=== PATIENT | female | born 1950 | race Caucasian/White ===

== ENCOUNTER 2016-07-03 12:41 | Emergency (ER) | payer MEDICARE, BC ==
[2016-07-03 13:09] VITALS: BP 120/65; PULSE 84; RESP 18; TEMP 97.1
--- NOTE | 2016-07-03 13:15 | ED ---
Upper Extremity HPI - General Stated Complaint: Right Wrist Injury Time Seen by Provider: 07/03/16 13:06 Source: patient, family, RN notes reviewed Mode of arrival: ambulatory Limitations: no limitations - History of Present Illness Initial Comments: 66-year-old female presents emergency Department chief complaint right wrist pain. Patient states that she tripped and fell her kitchen last night. Patient states that she fell onto her right wrist. She is left-hand dominant. Denies any head injury no LOC. Patient states her wrist is swollen, bruised and is very painful today. Patient has no paresthesias. She is increased pain with range of motion better at rest. Patient states that she has no lower extremity injury no back pain no neck pain. Place: home - Related Data Home Medications Medication Instructions Recorded Confirmed ALPRAZolam [Xanax] 1 mg PO DAILY PRN 01/12/14 12/30/15 Citalopram Hydrobromide 40 mg PO DAILY 01/12/14 12/30/15 [Citalopram HBr] Eszopiclone [Lunesta] 3 mg PO HS 01/12/14 12/30/15 Gabapentin [Neurontin] 800 mg PO QID 01/12/14 12/30/15 Baclofen [Lioresal] 10 mg PO BID-W/MEALS 12/30/15 12/30/15 Multivitamins, Thera [Multivitamin] 1 tab PO DAILY 12/30/15 12/30/15 amLODIPine [Norvasc] 10 mg PO DAILY 12/30/15 12/30/15 Allergies Allergy/AdvReac Type Severity Reaction Status Date / Time oxycodone HCl [From Percocet] Allergy Itching Verified 07/03/16 13:09 aspirin AdvReac Nausea & Verified 07/03/16 13:09 Vomiting codeine AdvReac Nausea & Verified 07/03/16 13:09 Vomiting Review of Systems ROS Statement: Those systems with pertinent positive or pertinent negative responses have been documented in the HPI. ROS Other: All systems not noted in ROS Statement are negative. 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 Ca General Exam Limitations: no limitations General appearance: alert, in no apparent distress Respiratory exam: Present: normal lung sounds bilaterally. Absent: respiratory distress, wheezes, rales, rhonchi, stridor Cardiovascular Exam: Present: regular rate, normal rhythm, normal heart sounds. Absent: systolic murmur, diastolic murmur, rubs, gallop, clicks Extremities exam: Present: other (Right wrist there is moderate edema, ecchymosis noted there is tenderness along the wrist and proximal hand there is no tenderness across MCPs or any other digits.) Neurological exam: Present: alert, oriented X3, CN II-XII intact Skin exam: Present: warm, dry, intact, normal color. Absent: rash Course Vital Signs 07/03/16 13:05 Temperature 97.1 F L Pulse Rate 84 Respiratory 18 Rate Blood Pressure 120/65 O2 Sat by Pulse 95 Oximetry Procedures - Orthopedic Splinting/Casting Injury #1 Side: right Upper Extremity Injury Location: wrist Upper Extremity Immobilizer: volar splint (Short arm neurovascular intact before and after procedure) Medical Decision Making - Medical Decision Making 66-year-old female presented emergency department for right wrist injury. Patient has fracture her right wrist. Patient was placed in a splint and follow -up with orthopedics return parameters were discussed. Disposition Clinical Impression: Right wrist fracture Disposition: HOME SELF-CARE Condition: Stable Instructions: Arm Fracture in Adults (ED) Additional Instructions: Please return to the Emergency Department if symptoms worsen or any other concerns. Referrals: Jose Veloz III, MD [Primary Care Provider] - 1-2 days Ion Alfred MD [STAFF PHYSICIAN] - 1-2 days Time of Disposition: 13:23
--- NOTE | 2016-07-03 13:50 | XR ---
EXAMINATION TYPE: XR wrist complete RT DATE OF EXAM: 07/03/2016 1:20 PM COMPARISON: NONE HISTORY: 66-year-old female with pain and swelling after fall last night TECHNIQUE: 4 views FINDINGS: There is an impacted and dorsally angulated transverse metaphyseal fracture of the distal radius with a mild dorsal displacement. Associated soft tissue swelling. No additional acute fracture or disloca tion seen. IMPRESSION: Mildly impacted Colles' fracture distal radius. Associated soft tissue swelling.
== END 2016-07-03 13:42 | disposition home or self-care (01) ==
LOC: EC 12:41
DX: S62.101A Fracture of unspecified carpal bone, right wrist, initial encounter for closed fracture (principal); E78.5 Hyperlipidemia, unspecified; I10 Essential (primary) hypertension; F17.200 Nicotine dependence, unspecified, uncomplicated; Z88.5 Allergy status to narcotic agent; Z88.6 Allergy status to analgesic agent; Z88.8 Allergy status to other drugs, medicaments and biological substances; Z79.899 Other long term (current) drug therapy; W01.0XXA Fall on same level from slipping, tripping and stumbling without subsequent striking against object, initial encounter; Y92.090 Kitchen in other non-institutional residence as the place of occurrence of the external cause
CPT/HCPCS: 29125; 99283

== ENCOUNTER 2016-07-29 09:32 | Emergency (ER) | payer MEDICARE, BC ==
[2016-07-29 09:40] VITALS: TEMP 97.1
[2016-07-29] MEDS ORDERED: SODIUM CHLORIDE 0.9% 1,000 ML IV ONE (10:03)
[2016-07-29] MEDS ORDERED: SODIUM CHLORIDE 0.9% 500 ML IV ONE (10:03)
[2016-07-29 10:23] LABS: Glucose,Whole Blood 108 mg/dL (75-99)
[2016-07-29 10:32] LABS: Basophils % (A) 0 %; CH 35.6; CHCM 33.2; Eosinophils # (A) 0.1 k/uL (0-0.7); Eosinophils % (A) 1 %; HCT 34.4 % (34.0-46.0); HDW 2.46; HGB 11.5 gm/dL (11.4-16.0); Luc # (Auto) 0.25; Luc % (Auto) 4; Lymphocytes # (A) 1.4 k/uL (1.0-4.8); Lymphocytes % (A) 20 %; MCHC 33.5 g/dL (31.0-37.0); MCV 107.6 fL (80.0-100.0); Macrocytosis Moderate; Mean Platelet Volume 7.6; Monocytes # (A) 0.3 k/uL (0-1.0); Monocytes % (A) 4 %; Neutrophils # (A) 5.1 k/uL (1.3-7.7); Neutrophils % (A) 71 %; RDW 14.5 % (11.5-15.5); WBC 7.2 k/uL (3.8-10.6); WBC (Perox) 7.29
[2016-07-29 10:38] LABS: INR 1.2 (<1.1); Partial Thromboplastin Time 26.8 sec (22.0-30.0); Prothrombin Time 12.1 sec (9.0-12.0)
[2016-07-29 10:41] LABS: ALT 41 U/L (9-52); AST 49 U/L (14-36); Alkaline Phosphatase 135 U/L (38-126); Anion Gap 1 mmol/L; Blood Urea Nitrogen 2 mg/dL (7-17); Calcium 8.6 mg/dL (8.4-10.2); Carbon Dioxide 24 mmol/L (22-30); Chloride 110 mmol/L (98-107); Glucose 106 mg/dL (74-99); Non-African American GFR(MDRD) >60 (>60 ml/min/1.73 sqM); Sodium 135 mmol/L (137-145); Total Bilirubin 0.7 mg/dL (0.2-1.3); Total Protein 5.7 g/dL (6.3-8.2)
[2016-07-29 10:43] LABS: Potassium 2.4 mmol/L (3.5-5.1)
[2016-07-29] MEDS ORDERED: POTASSIUM CHLORIDE ORAL LIQUID 40 MEQ/30 ML CUP PO ONE (10:47)
--- NOTE | 2016-07-29 10:52 | CT ---
EXAMINATION TYPE: CT brain wo con DATE OF EXAM: 07/29/2016 HISTORY: Altered mental status CT DLP: 945.5 mGycm. Automated Exposure Control for Dose Reduction was Utilized. TECHNIQUE: CT scan of the head is performed without contrast. COMPARISON: Prior CT brain December 30, 2015. FINDINGS: There is no acute intracranial hemorrhage or midline shift identified. There is diffuse v entricular and sulcal prominence consistent with diffuse age-related cerebral atrophy. There is low- attenuation in the periventricular white matter consistent with chronic small vessel ischemic change. The globes are intact and the visualized sinuses are clear. Patchy opacification inferior left ma stoid air cells is redemonstrated IMPRESSION: No acute intracranial hemorrhage or midline shift. There is mild to moderate diffuse ag e-related cerebral atrophy and chronic small vessel ischemic change redemonstrated. No significant ch rhys from prior study is evident.
[2016-07-29 10:53] LABS: Creatine Kinase 97 U/L (30-135)
--- NOTE | 2016-07-29 10:57 | XR ---
EXAMINATION TYPE: XR chest 2V DATE OF EXAM: 07/29/2016 COMPARISON: Chest x-ray October 02, 2015 HISTORY: Altered mental status. TECHNIQUE: Frontal and lateral views of the chest are obtained. FINDINGS: Underlying emphysematous change is felt present. There is no focal air space opacity, pleur al effusion, or pneumothorax seen. The cardiac silhouette size is within normal limits. Atherosclero tic change in thoracic aorta is redemonstrated. Surgical clips near gastroesophageal junction are aga in seen. The visualized osseous structures are intact. IMPRESSION: Chronic emphysematous change without acute pulmonary process.
[2016-07-29 11:06] LABS: Creatine Kinase MB 2.2 ng/mL (0.0-2.4); Troponin I <0.012 ng/mL (0.000-0.034)
--- NOTE | 2016-07-29 11:19 | ED ---
Altered Mental Status HPI - General Chief Complaint: Altered Mental Status Stated Complaint: dehydrated,electrolytes off Time Seen by Provider: 07/29/16 09:56 Source: patient Mode of arrival: wheelchair Limitations: no limitations - History of Present Illness Initial Comments: 66 years old female who had a few falls last night my said she fell 5-6 times in last 24 hours she was quite confused this morning conversation did not make any sense and he also stated that she has a history of for electrolyte imbalance the past and whenever that happens she gets confused. No headaches no chest pain no shortness of breath no abdominal pain no frequency urgency dysuria and she denies any injuries from the fall stated that there was a injury to her buttocks area but patient herself said no - Related Data Home Medications Medication Instructions Recorded Confirmed ALPRAZolam [Xanax] 1 mg PO DAILY PRN 01/12/14 07/29/16 Citalopram Hydrobromide 40 mg PO DAILY 01/12/14 07/29/16 [Citalopram HBr] Eszopiclone [Lunesta] 3 mg PO HS 01/12/14 07/29/16 Gabapentin [Neurontin] 800 mg PO QID 01/12/14 07/29/16 Multivitamins, Thera [Multivitamin] 1 tab PO DAILY 12/30/15 07/29/16 amLODIPine [Norvasc] 10 mg PO DAILY 12/30/15 07/29/16 Furosemide [Lasix] 20 mg PO DAILY PRN 07/29/16 07/29/16 Previous Rx's Medication Instructions Recorded Potassium Chloride 20 meq PO DAILY #10 tab.er.prt 07/29/16 Allergies Allergy/AdvReac Type Severity Reaction Status Date / Time oxycodone HCl [From Percocet] Allergy Itching Verified 07/29/16 11:07 aspirin AdvReac Nausea & Verified 07/29/16 11:07 Vomiting codeine AdvReac Nausea & Verified 07/29/16 11:07 Vomiting Review of Systems ROS Statement: Those systems with pertinent positive or pertinent negative responses have been documented in the HPI. ROS Other: All systems not noted in ROS Statement are negative. 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 Ca General Exam - General Exam Comments Initial Comments: General: The patient is awake and seems confused sometimes in the other times she is not confused Skin: Skin is warm and dry and no rashes or lesions are noted. Eye: Pupils are equal, round and reactive to light, extra-ocular movements are intact; there is normal conjunctiva bilaterally. Ears, nose, mouth and throat: Exam is normal Neck: The neck is supple, there is no tenderness . Cardiovascular: There is a regular rate and rhythm. No murmur, rub or gallop is appreciated. Respiratory: To auscultation bilateral, Consistent with the COPD Gastrointestinal: Soft, non-distended, non-tender abdomen without masses or organomegaly noted. There is no rebound or guarding present. Bowel sounds are unremarkable. Back: There is no tenderness to palpation in the midline. There is no obvious deformity. Musculoskeletal: Normal ROM, no tenderness, There is no pedal edema. There is no calf tenderness or swelling. No cords were appreciated. Neurological: CN II-XII intact, Cranial nerves III through XII are intact. There are no obvious motor or sensory deficits. Coordination appears grossly intact. Speech is normal. Psychiatric: Cooperative, appropriate mood & affect, normal judgment. Limitations: no limitations Course Vital Signs 07/29/16 07/29/16 09:37 10:14 Temperature 97.1 F L Pulse Rate 104 H 87 Respiratory 20 16 Rate Blood Pressure 86/54 157/84 O2 Sat by Pulse 100 99 Oximetry EKG is normal normal sinus rhythm ventricular rate is 92 IN interval is 128 QRS duration is 76 QT/QTc is 4:30/531 and 50 mL EKG reveals some T-wave flattening in lead 1 and some T wave in V4 inversion in leads 2 and 3 as well as aVF also noticed some mouth S2 depression in V3 V4 V5 and V6 Considering the EKG changes and now low potassium of 2.4 I recommended that patient is in the hospital for serial cardiac markers that she do not like the idea of staying in the hospital Considering her hypotension, changes in mental status, low potassium is 2.4, COPD, change in the EKG I recommended that she stay in the hospital so we could do the serial cardiac markers and make sure her potassium is fine she did take 50 mEq of by mouth potassium and she is adamant she wanted go she agreed to sign the AMA form and she was advised to return to ER if things get worse she agreed with the Medical Decision Making - Lab Data Result diagrams: 07/29/16 10:11 07/29/16 10:11 Lab Results 07/29/16 07/29/16 07/29/16 Range/Units 10:11 10:11 10:11 WBC 7.2 (3.8-10.6) k/uL RBC 3.20 L (3.80-5.40) m/uL Hgb 11.5 (11.4-16.0) gm/dL Hct 34.4 (34.0-46.0) % MCV 107.6 H (80.0-100.0) fL MCH 36.0 H (25.0-35.0) pg MCHC 33.5 (31.0-37.0) g/dL RDW 14.5 (11.5-15.5) % Plt Count 242 (150-450) k/uL Neutrophils % 71 % Lymphocytes % 20 % Monocytes % 4 % Eosinophils % 1 % Basophils % 0 % Neutrophils # 5.1 (1.3-7.7) k/uL Lymphocytes # 1.4 (1.0-4.8) k/uL Monocytes # 0.3 (0-1.0) k/uL Eosinophils # 0.1 (0-0.7) k/uL Basophils # 0.0 (0-0.2) k/uL Macrocytosis Moderate PT (9.0-12.0) sec INR (<1.1) APTT (22.0-30.0) sec Sodium 135 L (137-145) mmol/L Potassium 2.4 L* (3.5-5.1) mmol/L Chloride 110 H (98-107) mmol/L Carbon Dioxide 24 (22-30) mmol/L Anion Gap 1 mmol/L BUN 2 L (7-17) mg/dL Creatinine 0.43 L (0.52-1.04) mg/dL Est GFR (MDRD) Af Amer >60 (>60 ml/min/1.73 sqM) Est GFR (MDRD) Non-Af >60 (>60 ml/min/1.73 sqM) Glucose 106 H (74-99) mg/dL POC Glucose (mg/dL) (75-99) mg/dL POC Glu Manual Lathe Machinist ID Calcium 8.6 (8.4-10.2) mg/dL Total Bilirubin 0.7 (0.2-1.3) mg/dL AST 49 H (14-36) U/L ALT 41 (9-52) U/L Alkaline Phosphatase 135 H (38-126) U/L Total Creatine Kinase 97 (30-135) U/L CK-MB (CK-2) 2.2 (0.0-2.4) ng/mL CK-MB (CK-2) Rel Index 2.3 Troponin I <0.012 (0.000-0.034) ng/mL Total Protein 5.7 L (6.3-8.2) g/dL Albumin 3.0 L (3.5-5.0) g/dL 07/29/16 07/29/16 Range/Units 10:11 10:20 WBC (3.8-10.6) k/uL RBC (3.80-5.40) m/uL Hgb (11.4-16.0) gm/dL Hct (34.0-46.0) % MCV (80.0-100.0) fL MCH (25.0-35.0) pg MCHC (31.0-37.0) g/dL RDW (11.5-15.5) % Plt Count (150-450) k/uL Neutrophils % % Lymphocytes % % Monocytes % % Eosinophils % % Basophils % % Neutrophils # (1.3-7.7) k/uL Lymphocytes # (1.0-4.8) k/uL Monocytes # (0-1.0) k/uL Eosinophils # (0-0.7) k/uL Basophils # (0-0.2) k/uL Macrocytosis PT 12.1 H (9.0-12.0) sec INR 1.2 (<1.1) APTT 26.8 (22.0-30.0) sec Sodium (137-145) mmol/L Potassium (3.5-5.1) mmol/L Chloride (98-107) mmol/L Carbon Dioxide (22-30) mmol/L Anion Gap mmol/L BUN (7-17) mg/dL Creatinine (0.52-1.04) mg/dL Est GFR (MDRD) Af Amer (>60 ml/min/1.73 sqM) Est GFR (MDRD) Non-Af (>60 ml/min/1.73 sqM) Glucose (74-99) mg/dL POC Glucose (mg/dL) 108 H (75-99) mg/dL POC Glu Manual Lathe Machinist ID Heidi Alfonso Calcium (8.4-10.2) mg/dL Total Bilirubin (0.2-1.3) mg/dL AST (14-36) U/L ALT (9-52) U/L Alkaline Phosphatase (38-126) U/L Total Creatine Kinase (30-135) U/L CK-MB (CK-2) (0.0-2.4) ng/mL CK-MB (CK-2) Rel Index Troponin I (0.000-0.034) ng/mL Total Protein (6.3-8.2) g/dL Albumin (3.5-5.0) g/dL Disposition Clinical Impression: Hypotension, Change in mental status, Hypokalemia, COPD (chronic obstructive pulmonary disease) Disposition: Left Against Medical Advice Condition: Fair Prescriptions: Potassium Chloride 20 meq PO DAILY #10 tab.er.prt Referrals: Jose Veloz III, MD [Primary Care Provider] - 1-2 days
[2016-07-29 13:27] VITALS: RESP 18
[2016-07-29 13:28] VITALS: BP 144/73; PULSE 106
== END 2016-07-29 13:11 | disposition left against medical advice (07) ==
LOC: EC 09:32
DX: J44.9 Chronic obstructive pulmonary disease, unspecified (principal); E87.6 Hypokalemia; I95.9 Hypotension, unspecified; R41.82 Altered mental status, unspecified; J45.909 Unspecified asthma, uncomplicated; I10 Essential (primary) hypertension; F17.200 Nicotine dependence, unspecified, uncomplicated; Z79.899 Other long term (current) drug therapy; Z88.5 Allergy status to narcotic agent; Z88.6 Allergy status to analgesic agent; Z81.8 Family history of other mental and behavioral disorders
CPT/HCPCS: 36415; 70450; 71020; 80053; 82550; 82553; 84484; 85025; 85610; 85730; 93005; 96360; 96361; 99285

== ENCOUNTER 2016-08-02 10:34 | Inpatient (IN) | payer MEDICARE, BC ==
[2016-08-02] MEDS ORDERED: DIPHENOX-ATROP 2.5-0.025 MG 1 EACH TAB PO STA (11:01)
[2016-08-02] MEDS ORDERED: SODIUM CHLORIDE 0.9% 1,000 ML IV ONE (11:01)
[2016-08-02] MEDS ORDERED: SODIUM CHLORIDE 0.9% 500 ML IV ONE (11:01)
--- NOTE | 2016-08-02 11:04 | ED ---
General Adult HPI - General Chief complaint: Altered Mental Status Stated complaint: Weak Time Seen by Provider: 08/02/16 10:35 Source: patient, family, RN notes reviewed Mode of arrival: wheelchair Limitations: no limitations - History of Present Illness Initial comments: This is a 60-year-old female who presents to the emergency department because of diarrhea over the last 3 days. Patient complains of being extremely weak and getting weaker. Patient denies any abdominal pain. Patient denies any recent fever or chills. Patient denies any nausea or vomiting. Patient denies any difficulty breathing or shortness of breath. Patient denies any palpitations. Patient denies any lightheadedness or dizziness. Patient denies headache patient denies numbness weakness. Patient also denies dysuria hematuria and urinary frequency. Patient's main complaint is that she is extremely fatigued and she believes secondary to being dehydrated. - Related Data Home Medications Medication Instructions Recorded Confirmed ALPRAZolam [Xanax] 1 mg PO DAILY PRN 01/12/14 08/02/16 Citalopram Hydrobromide 40 mg PO DAILY 01/12/14 08/02/16 [Citalopram HBr] Eszopiclone [Lunesta] 3 mg PO HS 01/12/14 08/02/16 Gabapentin [Neurontin] 800 mg PO QID 01/12/14 08/02/16 Multivitamins, Thera [Multivitamin] 1 tab PO DAILY 12/30/15 08/02/16 amLODIPine [Norvasc] 10 mg PO DAILY 12/30/15 08/02/16 Furosemide [Lasix] 20 mg PO DAILY PRN 07/29/16 08/02/16 Previous Rx's Medication Instructions Recorded Potassium Chloride 20 meq PO DAILY #10 tab.er.prt 07/29/16 Allergies Allergy/AdvReac Type Severity Reaction Status Date / Time oxycodone HCl [From Percocet] Allergy Itching Verified 08/02/16 10:53 aspirin AdvReac Nausea & Verified 08/02/16 10:53 Vomiting codeine AdvReac Nausea & Verified 08/02/16 10:53 Vomiting Review of Systems ROS Statement: Those systems with pertinent positive or pertinent negative responses have been documented in the HPI. ROS Other: All systems not noted in ROS Statement are negative. 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 Ca General Exam - General Exam Comments Initial Comments: GENERAL: Patient is well-developed and well-nourished. Patient is nontoxic and well- hydrated and is in mild distress. ENT: Neck is soft and supple. No significant lymphadenopathy is noted. Oropharynx is clear. Dry mucous membranes. Neck has full range of motion without eliciting any pain. EYES: The sclera were anicteric and conjunctiva were pink and moist. Extraocular movements were intact and pupils were equal round and reactive to light. Eyelids were unremarkable. PULMONARY: Unlabored respirations. Good breath sounds bilaterally. No audible rales rhonchi or wheezing was noted. CARDIOVASCULAR: There is a regular rate and rhythm without any murmurs gallops or rubs. ABDOMEN: Soft and nontender with normal bowel sounds. SKIN: Skin is clear with no lesions or rashes and otherwise unremarkable. NEUROLOGIC: Patient is alert and oriented x3. Cranial nerves II through XII are grossly intact. Motor and sensory are also intact. Normal speech, volume and content. Symmetrical smile. MUSCULOSKELETAL: Normal extremities with adequate strength and full range of motion. LYMPHATICS: No significant lymphadenopathy is noted PSYCHIATRIC: Normal psychiatric evaluation. Limitations: no limitations Course Vital Signs 08/02/16 08/02/16 08/02/16 10:35 12:47 13:30 Temperature 96.5 F L 96.9 F L Pulse Rate 82 92 94 Respiratory 18 15 18 Rate Blood Pressure 116/57 135/69 142/65 O2 Sat by Pulse 98 93 L 97 Oximetry Medical Decision Making - Medical Decision Making EKG shows normal sinus rhythm at 72 bpm RI interval is on a 46 dresses 76 QT intervals 468 QTC is 512. Patient's EKG shows no ST segment elevation or depression or T-wave abdomen is noted I spoke with Dr. Zelaya he agreed to accept the patient he will come down and see the patient write admitting orders. Patient did admit to having some red tinge to the stool. - Lab Data Result diagrams: 08/02/16 11:00 08/02/16 11:00 Lab Results 08/02/16 08/02/16 08/02/16 Range/Units 11:00 11:00 12:45 WBC 4.0 (3.8-10.6) k/uL RBC 2.54 L (3.80-5.40) m/uL Hgb 9.1 L D (11.4-16.0) gm/dL Hct 27.7 L (34.0-46.0) % MCV 108.9 H (80.0-100.0) fL MCH 35.6 H (25.0-35.0) pg MCHC 32.7 (31.0-37.0) g/dL RDW 15.7 H (11.5-15.5) % Plt Count 252 (150-450) k/uL Neutrophils % 54 % Lymphocytes % 34 % Monocytes % 7 % Eosinophils % 2 % Basophils % 0 % Neutrophils # 2.2 (1.3-7.7) k/uL Lymphocytes # 1.4 (1.0-4.8) k/uL Monocytes # 0.3 (0-1.0) k/uL Eosinophils # 0.1 (0-0.7) k/uL Basophils # 0.0 (0-0.2) k/uL Poikilocytosis (manual Present Anisocytosis (manual) Present Macrocytosis Marked Target Cells Present Sodium 138 (137-145) mmol/L Potassium 4.2 (3.5-5.1) mmol/L Chloride 113 H (98-107) mmol/L Carbon Dioxide 22 (22-30) mmol/L Anion Gap 3 mmol/L BUN 2 L (7-17) mg/dL Creatinine 0.38 L (0.52-1.04) mg/dL Est GFR (MDRD) Af Amer >60 (>60 ml/min/1.73 sqM) Est GFR (MDRD) Non-Af >60 (>60 ml/min/1.73 sqM) Glucose 83 (74-99) mg/dL Calcium 7.9 L (8.4-10.2) mg/dL Magnesium 1.6 (1.6-2.3) mg/dL Total Bilirubin 1.1 (0.2-1.3) mg/dL AST 85 H (14-36) U/L ALT 49 (9-52) U/L Alkaline Phosphatase 152 H (38-126) U/L Total Protein 5.5 L (6.3-8.2) g/dL Albumin 2.8 L (3.5-5.0) g/dL Urine Color Light Yellow Urine Appearance Clear (Clear) Urine pH 5.0 (5.0-8.0) Ur Specific Winn 1.011 (1.001-1.035) Urine Protein Negative (Negative) Urine Glucose (UA) Negative (Negative) Urine Ketones Negative (Negative) Urine Blood Negative (Negative) Urine Nitrite Negative (Negative) Urine Bilirubin Negative (Negative) Urine Urobilinogen <2.0 (<2.0) mg/dL Ur Leukocyte Esterase Negative (Negative) Disposition Clinical Impression: GI bleed, Anemia, Dehydration, Generalized weakness Disposition: ADMITTED IP TO THIS [facility] Referrals: Jose Veloz III, MD [Primary Care Provider] - 1-2 days Time of Disposition: 13:42
[2016-08-02 11:39] LABS: ALT 49 U/L (9-52); AST 85 U/L (14-36); Alkaline Phosphatase 152 U/L (38-126); Anion Gap 3 mmol/L; Blood Urea Nitrogen 2 mg/dL (7-17); Calcium 7.9 mg/dL (8.4-10.2); Carbon Dioxide 22 mmol/L (22-30); Chloride 113 mmol/L (98-107); Glucose 83 mg/dL (74-99); Magnesium 1.6 mg/dL (1.6-2.3); Non-African American GFR(MDRD) >60 (>60 ml/min/1.73 sqM); Potassium 4.2 mmol/L (3.5-5.1); Sodium 138 mmol/L (137-145); Total Bilirubin 1.1 mg/dL (0.2-1.3); Total Protein 5.5 g/dL (6.3-8.2)
[2016-08-02 11:42] LABS: Basophils % (A) 0 %; CH 36.2; CHCM 33.4; Eosinophils # (A) 0.1 k/uL (0-0.7); Eosinophils % (A) 2 %; HCT 27.7 % (34.0-46.0); HDW 2.18; Luc # (Auto) 0.12; Luc % (Auto) 3; Lymphocytes # (A) 1.4 k/uL (1.0-4.8); Lymphocytes % (A) 34 %; MCH 35.6 pg (25.0-35.0); MCHC 32.7 g/dL (31.0-37.0); MCV 108.9 fL (80.0-100.0); Macrocytosis Marked; Mean Platelet Volume 7.4; Monocytes # (A) 0.3 k/uL (0-1.0); Monocytes % (A) 7 %; Neutrophils # (A) 2.2 k/uL (1.3-7.7); Neutrophils % (A) 54 %; RBC 2.54 m/uL (3.80-5.40); RDW 15.7 % (11.5-15.5); WBC (Perox) 4.17
[2016-08-02 11:45] LABS: HGB 9.1 gm/dL (11.4-16.0)
[2016-08-02 12:36] LABS: Target Cells Present
[2016-08-02] MEDS ORDERED: NICOTINE 21MG/24HR PATCH TRANSDERM STA (12:53)
[2016-08-02 13:10] LABS: Appearance,Urine Clear (Clear); Bilirubin,Urine Negative (Negative); Glucose,Urine (UA) Negative (Negative); Ketones,Urine Negative (Negative); Leukocyte Esterase,Urine Negative (Negative); Nitrite,Urine Negative (Negative); Protein,Urine Negative (Negative); Specific Gravity,Urine 1.011 (1.001-1.035); UA Billing (MACRO vs. MICRO) CHEM; Urobilinogen,Urine <2.0 mg/dL (<2.0)
[2016-08-02] MEDS ORDERED: TEMAZEPAM 15 MG CAP PO PRN (13:32)
[2016-08-02] MEDS ORDERED: NALOXONE 0.4 MG/ML 1 ML VIAL IV PRN (13:32)
[2016-08-02] MEDS ORDERED: predniSONE 20 MG TAB PO STA (13:43)
[2016-08-02 13:48] LABS: INR 1.1 (<1.1); Partial Thromboplastin Time 26.6 sec (22.0-30.0); Prothrombin Time 11.2 sec (9.0-12.0)
[2016-08-02] MEDS ORDERED: LORazepam 2 MG/ML SYRINGE IV STA (14:00)
[2016-08-02] MEDS: DEXTROSE 5%-0.45% NACL 1,000 ML IV SCH (14:12)
--- NOTE | 2016-08-02 14:21 | HP ---
DATE OF ADMISSION: REASON FOR ADMISSION: Generalized weakness and change in mental status. HISTORY OF PRESENTING ILLNESS: This is a 66-year-old female with history of myotonic dystrophy, wheelchair bound and is dependent on ADL support from her , has been progressively getting weaker over the last few days. Patient apparently has not had any significant oral intake over the same period of time. Patient initially was in the emergency room on 07/29/2016, was noted to have a hemoglobin of 11.5 at that time. Patient was seen at that time due to similar complaints; however, went home after feeling slightly better after IV fluids. Today, patient comes into the hospital, was noted to have a hemoglobin of 9.5. Denies having any bloody bowel movements at this time. Denies headaches, nausea, vomiting, abdominal pain, diarrhea. Patient states that she just does not have any appetite for food. In the past, on review of chart. patient was seen in by her service. At that time, patient was started on Marinol; however, patient did not like taking the medication as it made her high. REVIEW OF SYSTEMS: A 14-point review of system was done; none pertinent other than mentioned above. Home medications include: 1. Xanax. 2. Escitalopram. 3. Lunesta. 4. Neurontin. 5. Multivitamin. 6. Norvasc. 7. Lasix. 8. KCL. ALLERGIES: OXYCODONE, ASPIRIN, CODEINE. Past medical history includes asthma, COPD, ongoing tobacco use, hypertension, myotonic dystrophy. Past surgical history includes ulcer, neck surgery. SOCIAL HISTORY: Ongoing tobacco use, denies any illicit drug use or alcohol use. FAMILY HISTORY: Significant for pancreatic cancer, mesothelioma, pancreatic cancer in her mother. PHYSICAL EXAM: Vitals include temperature 96.5, heart rate is 82, respiratory rate 18, blood pressure 116/57. Saturating 98% on room air. GENERAL APPEARANCE: Appears to be emaciated, dehydrated with bitemporal wasting; however, does not appear to be in distress alert, oriented x3 in general exam. SKIN: There is a skin tear on the left lower extremity on the anterior huerta. HEENT: The pupils are equal and reactive to light and accommodation. HEART: S1, S2 present. No murmur appreciated. LUNGS: Good air entry. No wheezing or rhonchi noted. ABDOMINAL EXAM: Soft, nontender, no organomegaly appreciated. GENITOURINARY: No York in place. EXTREMITIES: Pulses can be palpated distally. Denies any tenderness on gross palpation. NEUROLOGICALLY: Grossly cranial nerves 2-12 intact. No motor or sensory deficits noted. ASSESSMENT AND PLAN: 1. Acute anemia of unknown etiology. Does not appear to have any significant blood loss, does have target cells on differential. 2. Significantly low BUN, which is consistent with very severe poor oral intake. 3. Severe protein calorie malnutrition. 4. Dehydration. 5. Ongoing tobacco use. 6. History of major depression. 7. Anxiety. 8. Myotonic dystrophy as well. PLAN: Rule out C. diff. Patient will be started on Imodium day after, D5 half-normal saline at 75 mL/h. Repeat labs in the a.m. including TSH. Will obtain a chest x-ray tomorrow as patient has ongoing tobacco use. Will need to rule out other causes of decreased appetite. Patient does not want an appetite stimulant at this time. Will give the patient a burst of steroids that does sometimes help in order to increase oral intake. Repeat labs in a.m. If patient is able to tolerate diet, will evaluate discharging the patient tomorrow. Will follow.
[2016-08-02] MEDS: GABAPENTIN 400 MG CAP PO SCH ×2 (16:02→23:44)
[2016-08-02] MEDS: NICOTINE 14MG/24HR PATCH TRANSDERM SCH (16:04)
[2016-08-02] MEDS ORDERED: ZOLPIDEM 5 MG TAB PO SCH (21:00)
[2016-08-02] MEDS: ALPRAZolam 0.25 MG TAB PO PRN (21:48)
[2016-08-02 23:50] LABS: Appearance,Urine Clear (Clear); Bacteria,Urine Rare /hpf; Bilirubin,Urine Negative (Negative); Glucose,Urine (UA) 4+ (Negative); Ketones,Urine Negative (Negative); Leukocyte Esterase,Urine Moderate (Negative); Nitrite,Urine Negative (Negative); PH, Urine 6.5 (5.0-8.0); Particle Count 1898; Protein,Urine Negative (Negative); RBC,Urine 1 /hpf (0-5); Specific Gravity,Urine 1.012 (1.001-1.035); Squamous Epithelial Cell,Urine 2 /hpf (0-4); UA Billing (MACRO vs. MICRO) MICRO; Urobilinogen,Urine <2.0 mg/dL (<2.0); WBC,Urine 28 /hpf (0-5)
[2016-08-03] MEDS: DEXTROSE 5%-0.45% NACL 1,000 ML IV SCH (03:06)
[2016-08-03] MEDS: ALPRAZolam 0.25 MG TAB PO PRN (04:32)
[2016-08-03 04:50] VITALS: RESP 18
[2016-08-03 07:18] LABS: Anisocytosis Slight; Basophils % (A) 0 %; CH 35.8; CHCM 31.7; Eosinophils % (A) 1 %; HCT 27.4 % (34.0-46.0); HDW 2.12; HGB 8.6 gm/dL (11.4-16.0); Luc # (Auto) 0.05; Luc % (Auto) 2; Lymphocytes # (A) 0.6 k/uL (1.0-4.8); Lymphocytes % (A) 23 %; MCH 35.8 pg (25.0-35.0); MCHC 31.4 g/dL (31.0-37.0); MCV 113.8 fL (80.0-100.0); Macrocytosis Marked; Mean Platelet Volume 7.6; Monocytes # (A) 0.2 k/uL (0-1.0); Monocytes % (A) 8 %; Neutrophils # (A) 1.7 k/uL (1.3-7.7); Neutrophils % (A) 67 %; RBC 2.41 m/uL (3.80-5.40); RDW 16.1 % (11.5-15.5); WBC 2.5 k/uL (3.8-10.6); WBC (Perox) 2.59
[2016-08-03 07:19] LABS: ALT 44 U/L (9-52); AST 56 U/L (14-36); Alkaline Phosphatase 152 U/L (38-126); Anion Gap 1 mmol/L; Blood Urea Nitrogen <2 mg/dL (7-17); Calcium 7.5 mg/dL (8.4-10.2); Carbon Dioxide 24 mmol/L (22-30); Chloride 108 mmol/L (98-107); Glucose 182 mg/dL (74-99); Magnesium 1.4 mg/dL (1.6-2.3); Non-African American GFR(MDRD) >60 (>60 ml/min/1.73 sqM); Potassium 3.7 mmol/L (3.5-5.1); Sodium 133 mmol/L (137-145); Total Protein 5.4 g/dL (6.3-8.2)
[2016-08-03 07:50] LABS: Hepatitis B Surface Ag Index 0.08
[2016-08-03 07:56] LABS: Hepatitis B Core IgM Index 0.02
[2016-08-03 08:07] LABS: Hepatitis C Virus IgG Ab Negative (Negative); Hepatitis C Virus IgG Index 0.02
[2016-08-03 08:50] LABS: Manual Review Performed
[2016-08-03] MEDS ORDERED: amLODIPine 10 MG TAB PO SCH (09:00)
[2016-08-03] MEDS ORDERED: CITALOPRAM HYDROBROMIDE 20 MG TAB PO SCH (09:00)
[2016-08-03] MEDS: GABAPENTIN 400 MG CAP PO SCH ×2 (10:09→12:18)
[2016-08-03] MEDS: NICOTINE 14MG/24HR PATCH TRANSDERM SCH (10:09)
--- NOTE | 2016-08-03 10:43 | XR ---
EXAMINATION TYPE: XR chest 1V portable DATE OF EXAM: 08/03/2016 COMPARISON: 07/29/2016 HISTORY: Shortness of breath TECHNIQUE: Single frontal view of the chest is obtained. FINDINGS: There is no focal air space opacity, pleural effusion, or pneumothorax seen. The cardiac silhouette size is within normal limits. The osseous structures are intact. Surgical change overlyi ng the cervical spine. Chronic nonunion fracture left clavicle. Atherosclerotic change aorta. Surgica l clips in the epigastrium. Pectus deformity noted. Hypertrophic and degenerative change of the spine . No overt failure. IMPRESSION: No acute process.
[2016-08-03 11:11] LABS: Iron 57 ug/dL (37-170)
[2016-08-03 11:22] VITALS: BMI 16.9
[2016-08-03 11:26] LABS: % Iron Saturation 32.4 % (20-50); Total Iron Binding Capacity 176 ug/dL (265-497)
[2016-08-03 12:03] LABS: Vitamin B12 595 pg/mL
[2016-08-03 12:38] VITALS: BP 130/82; PULSE 106; TEMP 97.4
--- NOTE | 2016-08-03 15:23 | P.DS ---
Providers Date of admission: 08/02/16 13:32 Attending physician: Evan Zelaya MD Primary care physician: [facility] Course: This is a 66-year-old female with history of myotonic dystrophy, wheelchair bound and is dependent on ADL support from her , has been progressively getting weaker over the last few days. Patient apparently has not had any significant oral intake over the same period of time. Patient initially was in the emergency room on 07/29/2016, was noted to have a hemoglobin of 11.5 at that time. Patient was seen at that time due to similar complaints; however, went home after feeling slightly better after IV fluids. Today, patient comes into the hospital, was noted to have a hemoglobin of 9.5. Denies having any bloody bowel movements at this time. Denies headaches, nausea, vomiting, abdominal pain, diarrhea. Patient states that she just does not have any appetite for food. In the past, on review of chart. patient was seen in by her service. At that time, patient was started on Marinol; however, patient did not like taking the medication as it made her high. PHYSICAL EXAM: Vitals include temperature 96.5, heart rate is 82, respiratory rate 18, blood pressure 116/57. Saturating 98% on room air. GENERAL APPEARANCE: Appears to be emaciated, dehydrated with bitemporal wasting; however, does not appear to be in distress alert, oriented x3 in general exam. SKIN: There is a skin tear on the left lower extremity on the anterior huerta. HEENT: The pupils are equal and reactive to light and accommodation. HEART: S1, S2 present. No murmur appreciated. LUNGS: Good air entry. No wheezing or rhonchi noted. ABDOMINAL EXAM: Soft, nontender, no organomegaly appreciated. GENITOURINARY: No York in place. EXTREMITIES: Pulses can be palpated distally. Denies any tenderness on gross palpation. NEUROLOGICALLY: Grossly cranial nerves 2-12 intact. No motor or sensory deficits noted. ASSESSMENT AND PLAN: 1. Acute anemia of unknown etiology. Iron studies b12 was done Ferritin needs to be done to rule out iron deficiency 2. Significantly low BUN, which is consistent with very severe poor oral intake. 3. Severe protein calorie malnutrition. 4. Dehydration. 5. Ongoing tobacco use. 6. History of major depression. 7. Anxiety. 8. Myotonic dystrophy as well. pt feels improved no further diarrhea is noted States to feel improved discharged home in a stable condition Plan - Discharge Summary New Discharge Prescriptions: New RX: Magnesium Oxide 400 mg PO TID #30 tablet Continue RX: Gabapentin [Neurontin] 800 mg PO QID RX: Eszopiclone [Lunesta] 3 mg PO HS RX: Citalopram Hydrobromide [Citalopram HBr] 40 mg PO DAILY RX: ALPRAZolam [Xanax] 1 mg PO DAILY PRN PRN Reason: Anxiety RX: amLODIPine [Norvasc] 10 mg PO DAILY RX: Multivitamins, Thera [Multivitamin (formulary)] 1 tab PO DAILY Discontinued Furosemide [Lasix] 20 mg PO DAILY PRN PRN Reason: Edema RX: Potassium Chloride 20 meq PO DAILY #10 tab.er.prt Discharge Medication List RX: ALPRAZolam [Xanax] 1 mg PO DAILY PRN 01/12/14 [History] RX: Citalopram Hydrobromide [Citalopram HBr] 40 mg PO DAILY 01/12/14 [History] RX: Eszopiclone [Lunesta] 3 mg PO HS 01/12/14 [History] RX: Gabapentin [Neurontin] 800 mg PO QID 01/12/14 [History] RX: Multivitamins, Thera [Multivitamin (formulary)] 1 tab PO DAILY 12/30/15 [ History] RX: amLODIPine [Norvasc] 10 mg PO DAILY 12/30/15 [History] RX: Magnesium Oxide 400 mg PO TID #30 tablet 08/03/16 [Rx] Follow up Appointment(s)/Referral(s): Jose Veloz III, MD [Primary Care Provider] - 08/04/16 1:30 pm Patient Instructions/Handouts: Gastrointestinal Bleeding (DC), Anemia (DC) Discharge Disposition: HOME SELF-CARE
== END 2016-08-03 13:03 | disposition home or self-care (01) | DRG 640 ==
LOC: EC 10:34 → 6SEL 13:32
PROVIDERS: ADMIT Internal Medicine; ATTEND Internal Medicine
DX: E86.0 Dehydration (principal); E43 Unspecified severe protein-calorie malnutrition; G71.11 Myotonic muscular dystrophy; J44.9 Chronic obstructive pulmonary disease, unspecified; S81.812A Laceration without foreign body, left lower leg, initial encounter; Z68.1 Body mass index [BMI] 19.9 or less, adult; I10 Essential (primary) hypertension; R19.7 Diarrhea, unspecified; R53.1 Weakness; E78.5 Hyperlipidemia, unspecified; D64.9 Anemia, unspecified; F17.200 Nicotine dependence, unspecified, uncomplicated; F32.9 Major depressive disorder, single episode, unspecified; F41.9 Anxiety disorder, unspecified; Z99.3 Dependence on wheelchair; Z80.0 Family history of malignant neoplasm of digestive organs; Z79.899 Other long term (current) drug therapy; Z71.3 Dietary counseling and surveillance; Z88.6 Allergy status to analgesic agent; Z88.5 Allergy status to narcotic agent; Z87.11 Personal history of peptic ulcer disease; Z90.49 Acquired absence of other specified parts of digestive tract; Z80.9 Family history of malignant neoplasm, unspecified; Z81.8 Family history of other mental and behavioral disorders
CPT/HCPCS: 36415; 71010; 80053; 80074; 81001; 81003; 82607; 83540; 83550; 83735; 84443; 85025; 85610; 85730; 93005; 96361; 96374; 99285

== ENCOUNTER → 2017-01-02 | Outpatient (CLI) | payer MEDICARE, BC ==
--- NOTE | 2017-01-02 08:03 | US ---
EXAMINATION TYPE: US abdomen complete DATE OF EXAM: 01/02/2017 COMPARISON: US abdomen limited January 12, 2014. MRI lumbar spine December 25, 2014 CLINICAL HISTORY: R74.0 Elevation anahase dehydroxylase levels. Abnormal labs EXAM MEASUREMENTS: Liver Length: 11.5 cm Gallbladder Wall: 0.3 cm CBD: 0.2 cm Spleen: 5.7 cm Right Kidney: 10.3 x 3.3 x 3.5 cm Pancreas: Body appeared wnl, head and tail gassed out, 2mm duct visualized Liver: Left lobe appeared enlarged, Gallbladder: Irregular posterior wall, lumen clear Evidence for sonographic Alfred's sign: No CBD: wnl Spleen: wnl Right Kidney: Multicystic, largest cyst= 1.2 x 1.0 x 1.1 cm, appeared malrotated Left Kidney: Unable to visualized, consistent with prior MRI findings Upper IVC: wnl Abd Aorta: Aortic calcifications, otherwise appeared wnl The visualized liver is homogenous. The intrahepatic portion of the IVC is within normal limits. Vi sualized aorta shows fairly moderate to severe atherosclerotic change diffusely. There is no evidence of cholelithiasis. Common bile duct is unremarkable. The visualized portions of the pancreas are h omogenous. The spleen is unremarkable. Kidneys are symmetric and free of hydronephrosis. A few smal l simple appearing cysts and small cysts with thin septations are scattered throughout visualized por tion of right kidney. Left kidney is not distinctly identified. On prior MRI there appears to be smal l left kidney with fusion of inferior poles or worsen type kidney and visualized portion of remnant l eft kidney is right of midline. IMPRESSION: No worrisome mass identified.
--- NOTE | 2017-01-30 19:00 | P.CONS ---
History of Present Illness - Reason for Consult Consult date: 01/30/17 Macrocytic anemia, weight loss and dehydration - History of Present Illness The patient is a 66-year-old white female, with a complex past medical history. She has a known history of myotonic dystrophy for several years. There has been slow progression to where the patient is mostly wheelchair bound and dependent on her for her ADLs. Over the last 6-7 months, there has been a decline in her appetite and progressive weight loss. She was admitted in 08/05 for decreased oral intake and dehydration. At that time she was noted to have low hemoglobin in the 9-10 range, with elevated MCV in the low 100 range. Iron studies were normal. The patient improved with dehydration and was discharged home. Since then she has continued to complain of diarrhea off and on. Weight loss as well as weakness has continued. Especially over the past 2-3 weeks, oral intake was significantly less leading to progressive weakness. The patient therefore came into the emergency room. On admission hemoglobin is 11.5 and fell to 8.5 after hydration. MCV was markedly elevated now in the 110s-120 range. The patient was supposed to have an oncology consult with Dr. Alcala, as well as a GI consult in the outpatient setting. Consult was therefore placed here, for further evaluation and recommendations. The patient is a poor historian and appeared to be somewhat confused about her past medical history. To me, she denied any blood problems in the past. No history of any obvious bleeding. She had a computed tomography scan of the abdomen and pelvis done this admission, which revealed abnormalities in the pancreatic head region that appear to be consistent with pancreatitis. There was no evidence of any obvious malignant appearing lesions. However interestingly, there appeared to be compromise of the superior mesenteric artery due to benign-appearing soft tissue. Review of Systems Constitutional: Reports fatigue, Reports poor appetite, Reports weakness, Reports weight loss Eyes: denies blurred vision, denies pain Ears: deny: decreased hearing, ear discharge, earache, tinnitus Ears, nose, mouth and throat: Reports dysphagia, Denies headache, Denies sore throat Cardiovascular: Reports dyspnea on exertion Respiratory: Denies cough Gastrointestinal: Reports abdominal pain, Reports diarrhea Genitourinary: Reports urge incontinence Menstruation: Reports postmenopausal Musculoskeletal: Reports muscle weakness Integumentary: Denies pruritus, Denies rash Neurological: Reports as per HPI, Reports ataxia, Reports gait dysfunction, Reports weakness Psychiatric: Denies anxiety, Denies depression Endocrine: Reports fatigue, Reports weight change Hematologic/Lymphatic: Reports as per HPI Past Medical History Past Medical History: Asthma, COPD, Hyperlipidemia, Hypertension, Osteoarthritis (OA) Additional Past Medical History / Comment(s): myotonic dystrophy, PAST H-PYLORI , LT COLLARBONE FX, RT WRIST FX(CASTED). TOLD WAS BORN WITH BOTH KIDNEYS ON RT SIDE AND 1 OF THEM IS DISEASED", GLAUCOMA LT EYE(HAD SX) CATARACTS(HAD SX) History of Any Multi-Drug Resistant Organisms: None Reported Past Surgical History: Appendectomy, Section, Hysterectomy, Tonsillectomy Additional Past Surgical History / Comment(s): ulcer, neck surgery, CATARACTS, PARTIAL HYSTERECTOMY, LT EYE SX FOR GLAUCOMA. Past Anesthesia/Blood Transfusion Reactions: No Reported Reaction Smoking Status: Current every day smoker - Past Family History Father Additional Family Medical History / Comment(s): Mesothelioma Mother Family Medical History: Dementia Additional Family Medical History / Comment(s): Pancreatitis ? Ca Medications and Allergies Home Medications Medication Instructions Recorded Confirmed Type ALPRAZolam [Xanax] 1 mg PO DAILY PRN 01/12/14 01/29/17 History Citalopram Hydrobromide 40 mg PO DAILY 01/12/14 01/29/17 History [Citalopram HBr] Eszopiclone [Lunesta] 3 mg PO HS 01/12/14 01/29/17 History Gabapentin [Neurontin] 800 mg PO TID 01/12/14 01/29/17 History Multivitamins, Thera [Multivitamin 1 tab PO DAILY 12/30/15 01/29/17 History (formulary)] Furosemide [Lasix] 20 mg PO DAILY PRN 01/29/17 01/29/17 History Allergies Allergy/AdvReac Type Severity Reaction Status Date / Time oxycodone HCl [From Percocet] Allergy Itching Verified 01/29/17 12:51 aspirin AdvReac Nausea & Verified 01/29/17 12:51 Vomiting codeine AdvReac Nausea & Verified 01/29/17 12:51 Vomiting Physical Exam - Constitutional General appearance: no acute distress - EENT Eyes: EOMI, PERRLA ENT: hearing grossly normal, normal oropharynx - Neck Neck: no lymphadenopathy Thyroid: bilateral: normal size - Respiratory Respiratory: bilateral: CTA - Cardiovascular Rhythm: regular Heart sounds: normal: S1, S2 - Gastrointestinal General gastrointestinal: normal bowel sounds, soft - Integumentary Integumentary: normal - Neurologic Neurologic: CNII-XII intact - Musculoskeletal Musculoskeletal: generalized weakness - Psychiatric Was oriented to self, appeared to be confused about her past medical history. Recall was quite poor. Results Chest x-ray: report reviewed CT scan - abdomen: report reviewed CT Scan - head: report reviewed CT scan - pelvis: report reviewed Assessment and Plan (1) Anemia Narrative/Plan: The patient has had only progressive anemia and macrocytosis, since at least July of this year. Etiology is not immediately clear. Her iron studies were within normal limits in 08/05, the ferritin was not done. B12 during this visit is actually higher than normal. I will check folate levels, as well as with hyaluronic acid. Protein electrophoresis studies and hemolysis workup will also be ordered. Her underlying neurological condition is not usually associated with any specific hematology abnormalities. If the aforementioned labs are negative, then bone marrow aspiration biopsy will need to be considered. Hemoglobin is currently in a safe range. Continue to monitor and transfuse if needed. The drop in hemoglobin from 11.5 at admission, to 8.5, is probably due to hydration. The initial hemoglobin of 11.5, is likely falsely elevated from hemoconcentration. Status: Acute Code(s): D64.9 - ANEMIA, UNSPECIFIED SNOMED Code(s): 358231246 (2) Intractable abdominal pain Narrative/Plan: This Has been associated with other abdominal symptoms, as noted in the HPI, specifically diarrhea, decreased appetite and weight loss. Computed tomography scan of the abdomen and pelvis does not show any lesions suggestive of malignancy. There appears to be chronic pancreatitis, the patient denies any history of the same. The patient could be having progressive weight loss due to malabsorption. In addition, it was also noted that there was compromise of the duodenal between the aorta and the superior mesenteric artery. Potentially this could also be leading to compromise of the SMA. The case was discussed with interventional cardiology, Dr. Haile. He recommended outpatient follow-up with mesenteric angiogram and stenting if needed. Inpatient, I would recommend a GI consult for endoscopic workup, as well as consideration for pancreatic enzyme supplementation. Status: Acute Code(s): R10.9 - UNSPECIFIED ABDOMINAL PAIN SNOMED Code(s): 84990504
== END | disposition home or self-care (01) ==
LOC: RADUSWWP 07:18
PROVIDERS: ATTEND Family Medicine
DX: R74.0 Nonspecific elevation of levels of transaminase and lactic acid dehydrogenase [LDH] (principal)
CPT/HCPCS: 76700